=== PATIENT | female | born 1945 | race Caucasian/White ===

== ENCOUNTER 2024-11-05 12:06 | Day surgery (SDC) | payer OTHER, SELFPAY ==
[2024-11-05] VITALS (11 sets, daily range): BP systolic 117–167; BP diastolic 75–100; BMI 23.9
[2024-11-05] MEDS: VANCOCIN 200 IV (13:02)
--- NOTE | 2024-11-05 13:27 | ITS.CL.PACE ---
[place] Floor Manager - Pacemaker Implant
Pacemaker Implant
Procedure Report:
PACEMAKER IMPLANT REPORT
Primary Care Physician: Dr. Paulina Combs
Primary Business Process Representative: Myself
Date of Procedure: November 05, 2024
Procedure:
1: Dual chamber pacemaker implantation with fluoroscopic guidance
Indication/Diagnosis:
1: Non-reversible symptomatic bradycardia due to: sinus node dysfunction.
History: The patient is an 79-year-old woman with a past medical history significant for persistent atrial fibrillation, hypertension, and hyperlipidemia who is referred for pacemaker placement due to symptomatic sick sinus syndrome with
tachycardia-bradycardia syndrome.
Antibiotic: Vancomycin 1 g IV
Sedation: Conscious sedation as per anesthesia staff
Description of Procedure: After informed consent was obtained, 'time out' was called and confirmed, the patient was prepped and draped in a sterile fashion. Lidocaine with epinephrine was used for local anesthesia. Central venous access was
obtained via subclavian venopuncture after a venogram from the left arm confirmed subclavian patency. An incision was made along the left chest and a pre-pectoral pocket was formed. Using a Seldinger technique and peel-away sheaths, the pacing
leads were placed under fluoroscopic guidance. Once testing (see below) showed adequate and stable function, the leads were secured using the suture sleeves. The pocket was liberally irrigated with antibiotic solution. The leads were connected to
the generator header and the leads and generator were placed within the pocket. Fluoroscopy confirmed stable lead position. The pocket was closed in the typical fashion.
IMPLANTS:
Company: [employer], SN: [id number] left Pectoral
RA: Biotronik Solia S45, SN: [id number], RAA
RV: Biotronik Solia S53, SN: [id number], RV apical septum
DEVICE TESTING:
Sensing: RA 3.5 mV, RV 2.9 mV
Capture: RA [Flutter], RV 0.6 V@0.4ms
Ohms: RA 527, RV 703
FINAL PROGRAMMING
Percy Pacing: DDD/CLS 60-120 ppm
Complications: None.
Fluoroscopy Time (min): 11.5
Radiation Dose (mGy): 26.6
DAP (Gy.cm2): 3.6
CONCLUSIONS:
1: Successful implant of dual chamber permanent pacemaker
RECOMMENDATIONS:
1. Routine post-op care (tele, CXR).
2. In-Office wound check within 7 days.
3. Office interrogation within 4 weeks.
Copy to: Dr. Paulina Combs
[2024-11-05] MEDS: LASIX 20 MG IV (16:12)
[2024-11-05] MEDS: FLUSH (NSS) 1 FLUSH IV (16:13)
--- NOTE | 2024-11-05 16:52 | PTCARENOTE ---
received patient from labor economics professor, [facility] serafin. D/I, no ecchymosis, no hematoma, no pain at pacemaker site. binder on patient. patient has purwick, voiding large amounts of clear urine. gave 20 IV Lasix as ordered. monitor shows NSR, VSS. patient is awake
--- NOTE | 2024-11-05 18:15 | PTCARENOTE ---
Addendum entered by Abby Dorsey RN 11/05/24 18:18:
Dr. Pérez doesnot want patient to travel, therefore STAT portable chest xray.
Original Note:
patient c/o center of chest chest pain that comes and goes, cannot rate it, obtained EKG, called Dr. Pérez came over to see patient and then left. will take for chest xray via stretcher.
--- NOTE | 2024-11-05 18:23 | PTCARENOTE ---
Dr. Pérez in room interrogating pacemaker.
--- NOTE | 2024-11-05 18:57 | PTCARENOTE ---
Dr. Pérez at bedside, he is doing an Echo, and portable chest xray completed. patient still c/o chest pain in center of chest, Dr. Pérez aware. will try tylenol.
[2024-11-05] MEDS: TOPROL XL 25 MG PO (19:59)
[2024-11-05] MEDS: TYLENOL 650 MG PO (21:26)
[2024-11-05] MEDS: LIPITOR 20 MG PO (21:26)
[2024-11-06] VITALS (11 sets, daily range): BP systolic 111–145; BP diastolic 70–104; BMI 22.6
--- NOTE | 2024-11-06 02:58 | PTCARENOTE ---
Pt. complained of center dull center chest pressure at 2245. VSS, states this is the same discomfort she had earlier in the evening on day shift - not 'pain' but heaviness/pressure that comes and goes; not relieved by Tylenol but 'better than
before' - made worse with movement and taking a deep breath. Pulse ox 97% on RA, lungs CTA, no SOB. Left chest PPM dressing CDI without hematoma, A-pacing on the monitor. Dr. Pérez notified, no new orders at this time. Pt. currently resting
quietly, states discomfort is at a 'minimum'.
--- NOTE | 2024-11-06 03:03 | DOWNTIME ---
There was a [employer] Client [employer] Legal Counsel Downtime on 11/06/2024 from 0100 to 11/06/2024 at 0215. Downtime documentation of patient's care, including medication administrations, has been reconciled in the electronic record per guidelines. Refer to the
patient's paper chart under the miscellaneous tab to see printed paper medication records and downtime forms.
[2024-11-06 03:44] LABS: Hematocrit 35.9 % (37.0-47.0); Hemoglobin 12.1 g/dL (12.0-16.0); Mean Corp Hgb Conc. 33.7 g/dL (33.0-37.0); Mean Corpuscular Volume 92.5 fL (81.0-99.0); Platelet Count 171 10^3/uL (130-400); Red Cell Dist. Width 13.2 % (11.5-14.5)
[2024-11-06 04:07] LABS: Blood Urea Nitrogen 21 mg/dl (7-17); Calcium 9.1 mg/dl (8.4-10.2); Carbon Dioxide 31 mmol/L (22-30); Chloride 103 mmol/L (98-107); Estimated Creatinine Clearance 42 ml/min; Glucose 89 mg/dl (70-99); Magnesium 2.0 mg/dl (1.6-2.3); Potassium 3.8 mmol/L (3.5-5.1); Sodium 139 mmol/L (135-145); eGFR > 60.00
--- NOTE | 2024-11-06 07:32 | W.PN.CARDCBS ---
Today's Communication / Plan
-
RA lead revision today
replace K+
Impression / Plan
-
PCP: Paulina Combs DO
CDY: Michael Wahl MD
79 y/o, recent near syncope with outpt holter revealing SSS with tachy-radha syndrome with 5.6sec pauses. A preprocedural echo revealed severe MR with elevated filling pressures.
Presented to EP lab, s/p DC PPM implant. Intermittent chest pressure and discomfort starting post procedure. Bedside echo last evening without effusion. Post procedure CXR w/stable lead position, no pneumothorax or effusion. Post EKGs NSR
w/intermittent A/AV pacing, no acute changes.
Recurrent chest discomfort this morning and stat echo ordered, showing small pericardial effusion and questionable RA lead position. Will return to EP lab for RA lead revision.
IMPRESSION:
Non reversible symptomatic bradycardia/SSS
s/p DC PPM implant, 11/05/24
Post procedure pericardial effusion with tenuous RA lead position
PAF/Flutter
Severe MR, improve to mild-mod after diuresis
Pulm HTN
HTN
CVA (2023)
Chronic venous insufficiency
PLAN:
Tele- NSR w/A/AV paced
device site stable
CXR w/stable lead position, no pneumothorax/effusion
Stop metoprolol tartrate and start metoprolol succinate 25mg BID
Post chest heaviness/pressure concerning- repeat echo with small effusion, and will return to lab for RA lead revision
elevated pulmonary pressures- given lasix 20mg IV post procedure with good diuresis and improvement in MR from severe to mild-mod.
Severe MR that improved to mild-mod after diuresis, likely fluid related, replace K+.
[id number]=9, maintained on low dose eliquis 2.5mg BID- currently in SR- will hold at least 1 week post, restart per primary cards.
NPO for RA lead revision.
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
Subjective
Date of Service: November 06, 2024
Intermittent chest heaviness/pressure post procedure, currently pain free
denies sob/dypsnea/palps
oob ambulating
device site without pain
Objective
Labs:
11/06/24 03:22
11/06/24 03:22
Labs
Hgb 12.1 g/dL (12.0-16.0) 11/06/24 03:22
Hct 35.9 % (37.0-47.0) L 11/06/24 03:22
Plt Count 171 10^3/uL (130-400) 11/06/24 03:22
Sodium 139 mmol/L (135-145) 11/06/24 03:22
Potassium 3.8 mmol/L (3.5-5.1) 11/06/24 03:22
BUN 21 mg/dl (7-17) H 11/06/24 03:22
Creatinine 0.8 mg/dL (0.6-1.0) 11/06/24 03:22
Glucose 89 mg/dl (70-99) 11/06/24 03:22
Vital Signs and I&O:
Vital Signs
Temp Pulse Resp BP Pulse Ox
98.6 F 67 16 138/85 96
11/06/24 03:08 11/06/24 05:00 11/06/24 03:08 11/06/24 03:07 11/06/24 03:08
Vital Signs
Temp Pulse Resp BP Pulse Ox
98.6 F 67 16 138/85 96
11/06/24 03:08 11/06/24 05:00 11/06/24 03:08 11/06/24 03:07 11/06/24 03:08
Intake & Output
11/04/24 11/05/24 11/06/24 11/07/24
06:59 06:59 06:59 06:59
Intake Total 480 / 480
Output Total 1600 / 1600
Balance -1120 / -1120
Physical Exam
Physical Exam
AAOx3, MAEE 5/5
RRR S1 S2 no murmurs
CTA bilat, non labored
left acw w/steri strips intact, no ht/bleeding, non tender
soft abd, + bs
bilat extremities w/palpable distal pulses, no edema
--- NOTE | 2024-11-06 07:52 | PTCARENOTE ---
Dr Pérez at bedside and stat echo ordered and completed.
--- NOTE | 2024-11-06 08:19 | W.PN.UPDATE ---
Update Note
Progress Note Update
The patient developed right sharp chest pain several hours after pacer insertion last night.
She remained hemodynamically stable but did appear uncomfortable at times in the evening.
Pacer check was performed with the patient back in normal sinus rhythm and all the lead sensing pacing and impedance data looked good.
Chest x-ray was also benign.
She slept overnight and actually reports feeling better this morning but still reports pleuritic pain especially with deep inspiration.
Formal bedside echo done this morning shows a small but new pericardial effusion highly suspicious for a microperforation.
Impedance data on the atrial lead is stable however the P wave amplitude is down a bit from last evening.
In light of her ongoing symptoms and new effusion I am concerned there was some degree of microperforation.
After long discussion and debate I am electing to bring her back to the [facility] to reposition the atrial lead.
Discussed at length with her son via telephone. Will proceed with lead repositioning immediately.
[2024-11-06] MEDS: ZESTRIL 20 MG PO (08:20)
[2024-11-06] MEDS: TOPROL XL 25 MG PO ×2 (08:21→19:20)
[2024-11-06] MEDS: NORVASC 5 MG PO (08:21)
[2024-11-06] MEDS: KCL 20 MEQ PO (08:22)
[2024-11-06] MEDS: VANCOCIN 200 IV (08:50)
--- NOTE | 2024-11-06 09:12 | ITS.CL.PACE ---
[facility]ir[facility] Operator - Pacemaker Implant
Pacemaker Implant
Procedure Report:
PACEMAKER LEAD REPOSITION REPORT
Primary Care Physician: Dr. Paulina Combs
Primary Director Of Property Management: Myself
Date of Procedure: November 06, 2024
Procedure:
1: Repositioning of atrial lead
Indication/Diagnosis:
1: Possible atrial lead dislodgment/perforation
History: The patient is an 79-year-old woman who underwent pacemaker placement yesterday for symptomatic tachycardia-bradycardia syndrome with sick sinus syndrome. Postprocedure she developed anterior chest discomfort which was intermittently
pleuritic. All lead data was interrogated and was stable with normal lead appearance on chest x-ray. Overnight she slept well and remained hemodynamically stable. This morning she says her pain is reduced but she still reported pleuritic anterior
chest discomfort with deep inspiration. Echocardiography showed a new small pericardial effusion concerning for possible perforation. This was not appreciated on echo performed on Monday. Interestingly her mitral digitation which appeared
moderate to severe on Monday is definitely less and pulmonary pressures are only mildly elevated compared to echo on Monday after diuresis with Lasix 20 mg IV overnight. In light of her ongoing pleuritic symptoms and the concern for possible
perforation despite having stable lead parameters, I have elected to have the patient return for repositioning of the atrial lead. The P waves last night were slightly higher around 2.5 and this morning they are 1.5. That said the impedance and
pacing thresholds are stable and unchanged in both the atrium and the ventricle.
Antibiotic: Vancomycin 1 g IV
Sedation: Conscious sedation as per anesthesia staff
Description of Procedure: After informed consent was obtained, 'time out' was called and confirmed, the patient was prepped and draped in a sterile fashion. Lidocaine with epinephrine was used for local anesthesia over the site of the initial
incision. The incision was made over the previous incision and the device and leads were removed from the pocket. The atrial lead suture sleeves were removed and the active-fixation screw was retracted. The lead was repositioned in a new area on
the atrium. Once testing (see below) showed adequate and stable function, the atrial lead was resecured using the suture sleeve. The pocket was liberally irrigated with antibiotic solution. The leads were connected to the generator header and the
leads and generator were placed within the pocket. Fluoroscopy confirmed stable lead position. The pocket was closed in the typical fashion.
Echocardiography was then performed in the EP lab on the table to make sure that the pericardial effusion had not changed. This showed a stable small pericardial effusion of no hemodynamic consequence.
IMPLANTS:
Company: [employer], SN: [id number] left Pectoral
RA: Biotronik Solia S45, SN: [id number], RAA
RV: Bi[employer] Solia S53, SN: [id number], RV apical septum
DEVICE TESTING:
Sensing: RA 1.6 mV, RV 2.9 mV
Capture: RA 2.0V@0.4ms, RV 0.6V@0.4ms
Ohms: RA 430, RV 703
FINAL PROGRAMMING
Percy Pacing: DDD CLS 60-120ppm
Complications: None.
Fluoroscopy Time (min): 3.6
Radiation Dose (mGy): 8.3
DAP (Gy.cm2): 1.2
CONCLUSIONS:
1: Successful repositioning of atrial lead. Of note, at the end of the procedure the patient no longer has any pleuritic chest pain.
RECOMMENDATIONS:
1. Routine post-op care (tele, CXR).
2. In-Office wound check within 7 days.
3. Office interrogation within 4 weeks.
Copy to: Dr. Paulina Combs
[2024-11-06] MEDS: AZACTAM 2000 MG IV (09:26)
[2024-11-06] MEDS: STERILE WATER FOR INJECTION 10 ML IV (09:26)
--- NOTE | 2024-11-06 10:08 | PTCARENOTE ---
CHG wipes done report given to slab tripper.
--- NOTE | 2024-11-06 10:51 | PTCARENOTE ---
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 Left CW dressing c/d/i EKG done.
--- NOTE | 2024-11-06 12:14 | CM ---
Reviewed chart. Met with Mrs. Pedro and her son to review discharge plans. She states prior to admission she resides with her son in a two story townhouse with eight steps to enter. She states she has a full flight of steps to get to bedroom/full
bathroom. She states she does not have a powder room on the first floor. She states prior to admission she was independent with ambulation and adls. She states she has single point cane at home but currently not using them. She states she has a
prescription plan and uses [facility]. The discharge plan is to return home with her son when medically stable.
--- NOTE | 2024-11-06 21:39 | PTCARENOTE ---
Assumed care of patient at change of shift w/ pts son Jaron at bedside. Pt ambulated self to bathroom and denies any dizziness. Left anterior chest dressing intact, scant drainage previously marked by day shift RN. Pt aware of activity
restrictions. Denies any pain or SOB. VSS. Tele remains Apaced HR in the 60-70's. Lungs decreased in the bases. Pt w/ facial droop on right side. Patient reports she's had this since she was a little kid d/t her upper/bottom teeth don't line up.
While administering 20:00 medications patient and patients son (Jaron) informed me that she has not taken Carbamazepine extended release in months. Confirmed on med rec, medication not listed. Medication refused at this time. Call hanson in reach.
[2024-11-06] MEDS: LIPITOR 20 MG PO (22:04)
[2024-11-07 03:05] VITALS: BP 141/82
[2024-11-07 03:41] LABS: Hematocrit 35.0 % (37.0-47.0); Hemoglobin 11.9 g/dL (12.0-16.0); Mean Corp Hgb Conc. 34.0 g/dL (33.0-37.0); Mean Corpuscular Volume 93.6 fL (81.0-99.0); Platelet Count 164 10^3/uL (130-400); Red Cell Dist. Width 13.0 % (11.5-14.5)
[2024-11-07 04:07] LABS: Blood Urea Nitrogen 19 mg/dl (7-17); Calcium 9.6 mg/dl (8.4-10.2); Carbon Dioxide 30 mmol/L (22-30); Chloride 102 mmol/L (98-107); Estimated Creatinine Clearance 48 ml/min; Glucose 128 mg/dl (70-99); Magnesium 2.0 mg/dl (1.6-2.3); Potassium 4.1 mmol/L (3.5-5.1); Sodium 137 mmol/L (135-145); eGFR > 60.00
[2024-11-07 08:10] VITALS: BP 108/60
--- NOTE | 2024-11-07 08:15 | PTCARENOTE ---
Assumed care of the pt @ 0700. Pt is AAOx3 A paced on the monitor VSS. Left CW pacer site with scant amt of old blood on dressing. Pt ambulating independently in the room. Call hanson within reach.
--- NOTE | 2024-11-07 08:38 | W.PN.CARDCBS ---
Addendum entered and electronically signed by David Prieto MD 11/07/24 11:23:
79-year-old woman who underwent revision of right atrial lead on after pacemaker implant on
PMH: Paroxysmal atrial fibrillation/flutter, Severe MR improving to mild to moderate, Pulmonary hypertension, Hypertension, CVA 2023
Meds: Reviewed
141/82, pulse 83, respirate 20, afebrile, sats are 98%, elderly and somewhat frail but pleasant, no acute distress head neck exam unremarkable lungs are clear pacer site slightly ecchymotic but no hematoma incision intact, regular rate and rhythm,
no murmurs, abdomen benign extremities without clubbing cyanosis or edema
Chest x-ray yesterday, no active disease
White count is 11.3, hemoglobin is 11.9, BUN and creatinine are 19 and 0.7, potassium is 4.1
ECG: Atrially paced rhythm, anterolateral T wave changes, inferior T wave changes
Impression:
Status post pacemaker placement 11/05/24, right atrial lead revision 11/06/24
Mitral regurgitation, improved to mild to moderate
Paroxysmal atrial fibrillation/flutter
Hypertension
History of CVA
Hyperlipidemia
Venous insufficiency
Plan:
She looks stable
No evidence of hemodynamic compromise
Per Dr. Pérez, follow-up echo not required at present
Okay for discharge.
Eliquis to be held until reevaluated
Follow-up arrangements in place
Original Note:
Today's Communication / Plan
-
post RA lead revision feels much better
hold eliquis for 1 week
inc check monday
home today
Impression / Plan
-
PCP: Paulina Combs, DO
CDY: Michael Wahl MD
79 y/o, recent near syncope with outpt holter revealing SSS with tachy-radha syndrome with 5.6sec pauses. A preprocedural echo revealed severe MR with elevated filling pressures.
Presented to EP lab, s/p DC PPM implant. Intermittent chest pressure and discomfort starting post procedure. Bedside echo last evening without effusion. Post procedure CXR w/stable lead position, no pneumothorax or effusion. Post EKGs NSR
w/intermittent A/AV pacing, no acute changes.
Recurrent chest discomfort this morning and stat echo ordered, showing small pericardial effusion and questionable RA lead position. Will return to EP lab for RA lead revision.
IMPRESSION:
Non reversible symptomatic bradycardia/SSS
s/p DC PPM implant, 11/05/24
Post procedure pericardial effusion with tenuous RA lead position s/p RA lead revision 11/06/24
PAF/Flutter
Severe MR, improve to mild-mod after diuresis
Pulm HTN
HTN
CVA (2023)
Chronic venous insufficiency
Hyperlipidemia
PLAN:
post RA lead revision, no further chest pain
site stable with some redness where Tegaderm removed, steri strips intact
Tele- NSR w/A/AV paced
CXR w/stable lead position, no pneumothorax, mild LLL atelectasis
Stop metoprolol tartrate and start metoprolol succinate 25mg BID
Pt and family states amlodipine was stopped, will hold for now, unsure if stopped with near syncope episode, will f/u Monday for inc check and discuss with cards
Severe MR that improved to mild-mod after diuresis, likely fluid related, replace K+.
[id number]=6, maintained on low dose eliquis 2.5mg BID- currently in SR- will hold at least 1 week post, restart per primary cards.
Activity restrictions reviewed
incision check Monday 10am
stable for d/c home today
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
Subjective
Date of Service: November 07, 2024
denies cp, sob
Objective
Labs:
11/07/24 03:15
11/07/24 03:15
Labs
Hgb 11.9 g/dL (12.0-16.0) L 11/07/24 03:15
Hct 35.0 % (37.0-47.0) L 11/07/24 03:15
Plt Count 164 10^3/uL (130-400) 11/07/24 03:15
Sodium 137 mmol/L (135-145) 11/07/24 03:15
Potassium 4.1 mmol/L (3.5-5.1) 11/07/24 03:15
BUN 19 mg/dl (7-17) H 11/07/24 03:15
Creatinine 0.7 mg/dL (0.6-1.0) 11/07/24 03:15
Glucose 128 mg/dl (70-99) H 11/07/24 03:15
Vital Signs and I&O:
Vital Signs
Temp Pulse Resp BP Pulse Ox
99 F 83 20 141/82 98
11/07/24 08:07 11/07/24 06:00 11/07/24 08:07 11/07/24 03:05 11/07/24 08:07
Vital Signs
Temp Pulse Resp BP Pulse Ox
99 F 83 20 141/82 98
11/07/24 08:07 11/07/24 06:00 11/07/24 08:07 11/07/24 03:05 11/07/24 08:07
Intake & Output
11/05/24 11/06/24 11/07/24 11/08/24
06:59 06:59 06:59 06:59
Intake Total 480 / 480
Output Total 1600 / 1600
Balance -1120 / -1120
Physical Exam
Physical Exam
NAD, AOX3
S1, S2, RRR
CTAB, non labored, no wheeze
SNTND bsx4
L CW site c/d/i, steri strips intact, no HT, errythema and skin tear with removal of tegaderm dressing
[2024-11-07] MEDS: ZESTRIL PO (08:54)
[2024-11-07] MEDS: TOPROL XL 25 MG PO (08:58)
--- NOTE | 2024-11-07 09:05 | CM ---
Reviewed chart. Met with Mrs. Pedro to review discharge plans. She states she is feeling better and maybe able to go home soon. Prior to admission she resides with her son in a two story townhouse with eight steps to enter. She has a full flight of
steps to get to bedroom/full bathroom. She does not have a powder room on the first floor. Prior to admission she was independent with ambulation and adls. She has single point cane at home but currently not using them. She states she has a
prescription plan and uses [facility]. The discharge plan is to return home with her son when medically stable.
[2024-11-07 11:15] VITALS: BP 125/88
--- NOTE | 2024-11-07 11:20 | W.DS.TRANS ---
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
-
Discharge Instructions:
Sleep Apnea Risk Low
Discharge Diagnosis/Procedures Pacemaker implant (11/05), Right Atrial lead
revision (11/06)
Diet Low Cholesterol
Driving Restrictions No driving for 1 week
Bathing Restrictions After dressing removed
Instructions:
Stand-Alone Forms: DC Inst - Implanted Device
Changes to Home Medications: Yes
Discharge Medications:
DC Medications w/original date entered in [facility]
amlodipine 5 mg tablet 5 mg PO DAILY 11/05/24
apixaban 2.5 mg tablet (Eliquis) 2.5 mg PO BID 11/05/24
Held on 11/07/24. Instructions: Resume on 11/13/24. until cleared by cardiology to resume
lisinopril 20 mg tablet 20 mg PO DAILY 11/05/24
simvastatin 40 mg tablet 40 mg PO HS 11/05/24
metoprolol succinate 25 mg tablet,extended release 24 hr 25 mg PO BID #60 tabs 11/06/24
Home Medication Changes
stopped metoprolol tartrate, new to metoprolol succinate 25 bid, holding eliquis and amlodipine until cards f/u
Pending Results: No
[2024-11-07] MEDS: ZESTRIL 20 MG PO (11:26)
== END 2024-11-07 12:50 | disposition home or self-care (01) ==
LOC: CATH 12:06
PROVIDERS: Nurse Practitioner Adult Health; ATTENDING PHYSICIAN Internal Medicine Interventional Cardiology; FAMILY PHYSICIAN Family Medicine
DX: I49.5 Sick sinus syndrome (principal); E78.5 Hyperlipidemia, unspecified; I08.3 Combined rheumatic disorders of mitral, aortic and tricuspid valves; I10 Essential (primary) hypertension; I27.20 Pulmonary hypertension, unspecified; I31.39 Other pericardial effusion (noninflammatory); I48.19 Other persistent atrial fibrillation; I48.92 Unspecified atrial flutter; I49.8 Other specified cardiac arrhythmias; Z86.73 Personal history of transient ischemic attack (TIA), and cerebral infarction without residual deficits; I87.2 Venous insufficiency (chronic) (peripheral); J98.11 Atelectasis; M47.9 Spondylosis, unspecified; Z88.0 Allergy status to penicillin; R55 Syncope and collapse
CPT/HCPCS: 33208; 33215; 71045; 80048; 83735; 85027; 93005; 93308; 93321; 93325; C1785; C1898; Q9967